=== PATIENT | female | born 1990 | race Caucasian/White ===

== ENCOUNTER 2017-10-14 09:30 | Emergency (ER) | payer OTHER ==
[2017-10-14] MEDS ORDERED: HYDROcod/ACETAM 5/325 MG TABLET PO STA (10:35)
--- NOTE | 2017-10-14 10:38 | ED Physician Documentation ---
PD HPI HEENT - Stated complaint Stated Complaint: BILAT EAR PX/HEAD PX - Chief complaint Chief Complaint: Heent - History obtained from History obtained from: Patient - History of Present Illness Timing - onset: How many days ago (2) Timing - details: Still present Location: Right ear, Left ear Associated symptoms: Headache Similar symptoms before: Has not had sx before - Additional information Additional information: The patient is a 27-year-old female who presents with bilateral ear pain that started 2 days ago and is worse this morning. She reports rupture of her right tympanic membrane is morning. She reports associated headache and nausea. She denies fever, vomiting, cough, or sore throat. She denies history of similar symptoms in the past. She denies any recent air travel, diving, or swimming. Review of Systems Constitutional: denies: Fever Eyes: denies: Irritation Ears: reports: Ear pain (bilaterally), Drainage/discharge Nose: reports: Congestion Throat: denies: Sore throat Cardiac: denies: Chest pain / pressure Respiratory: denies: Dyspnea, Cough GI: reports: Nausea. 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 HEENT: Tonsil/Adenoidectomy - Present Medications Home Medications: Ambulatory Orders Medication Instructions Recorded Confirmed Azithromycin [Zithromax] 250 mg PO DAILY #6 tablet 10/14/17 Ciproflox/Dexameth Otic Drops 10/14/17 [Ciprodex] HYDROcod/ACETAM 5/325 [Vicodin 1 ea PO Q6H PRN #12 tablet 10/14/17 5/325] Ibuprofen 10/14/17 Neomycin/Polymyx/Hc Otic Drops 4 drops OT TID #1 bottle 10/14/17 [Cortisporin Ear Susp] Pseudoephedrine [Sudafed] 10/14/17 - Allergies Allergies/Adverse Reactions: Allergies Allergy/AdvReac Type Severity Reaction Status Date / Time amoxicillin Allergy Unknown Verified 10/14/17 09:41 - Social History Does the pt smoke?: No Smoking Status: Never smoker Does the pt drink ETOH?: Yes Does the pt have substance abuse?: No - Immunizations Immunizations are current?: Yes - POLST Patient has POLST: No PD ED PE NORMAL - Vitals Vital signs reviewed: Yes (initially hypertensive.) - General General: Alert and oriented X 3, Well developed/nourished, Other (Appears distraught, and is crying.) - HEENT HEENT: Atraumatic, EOMI, Pharynx benign, Other (Purulent drainage is noted in the left ear canal, and the tympanic membrane is dull. Right ear canal also has purulent drainage, with a dull tympanic membrane.) - Neck Neck: Supple, no meningeal sign, Other (Mildly enlarged anterior cervical nodes bilaterally.) - Cardiac Cardiac: RRR - Respiratory Respiratory: No respiratory distress, Clear bilaterally - Back Back: No CVA TTP - Derm Derm: No rash - Extremities Extremities: No edema, No calf tenderness / cord - Neuro Neuro: Alert and oriented X 3, No motor deficit, Normal speech Results - Vitals Vitals: Oxygen O2 Source Room air PD MEDICAL DECISION MAKING - ED course Complexity details: re-evaluated patient, considered differential, d/w patient, d/w family ED course: The patient's presentation is most consistent with bilateral otitis media and bilateral otitis externa. Her presentation does not suggest meningitis or peritonsillar abscess. Treatment in the emergency department included administration of Vicodin one tablet orally. She is being discharged with prescriptions for Zithromax, Cortisporin otic suspension, and Vicodin, 12 tablets. I discussed with her and her the expected course of illness, antibiotic treatment and outpatient follow-up, as well as potentially worrisome signs or symptoms that should prompt reevaluation in the emergency department. Departure - Departure Disposition: 01 Home, Self Care Clinical Impression: Bilateral otitis media Qualifiers: Otitis media type: suppurative Chronicity: acute Recurrence: not specified as recurrent Spontaneous tympanic membrane rupture: without spontaneous rupture Qualified Code(s): H66.003 - Acute suppurative otitis media without spontaneous rupture of ear drum, bilateral Bilateral otitis externa Qualifiers: Otitis externa type: unspecified type Chronicity: acute Qualified Code(s): H60.503 - Unspecified acute noninfective otitis externa, bilateral Condition: Stable Instructions: ED Otitis Media Acute Adult, ED Otitis Externa Follow-Up: [facility] [Provider Group] Prescriptions: Azithromycin [Zithromax] 250 mg PO DAILY #6 tablet HYDROcod/ACETAM 5/325 [Vicodin 5/325] 1 ea PO Q6H PRN #12 tablet PRN Reason: Pain Neomycin/Polymyx/Hc Otic Drops [Cortisporin Ear Susp] 4 drops OT TID #1 bottle Comments: Take Zithromax daily as prescribed. Administer Cortisporin suspension into each ear canal as prescribed. You can use ibuprofen, up to 800 mg 3 times daily for its anti-inflammatory effect. You can use Vicodin as prescribed if needed for pain. Follow up with your primary physician within 1-2 weeks. Call to schedule an appointment. Return to the emergency department if you develop increasing headache, fever with shaking chills, persistent vomiting, or otherwise worsening symptoms. Discharge Date/Time: 10/14/17 10:49
[2017-10-14 10:48] VITALS: BP 131/89
== END 2017-10-14 10:49 | disposition home or self-care (01) ==
LOC: ED 09:30
DX: H66.003 Acute suppurative otitis media without spontaneous rupture of ear drum, bilateral (principal); H60.503 Unspecified acute noninfective otitis externa, bilateral
CPT/HCPCS: 99283; A9270

== ENCOUNTER 2020-09-23 08:45 | Outpatient (CLI) | payer OTHER ==
--- NOTE | 2020-09-24 12:53 | Mammography Report ---
BILATERAL DIGITAL DIAGNOSTIC MAMMOGRAM 3D/2D: 09/23/2020 CLINICAL: Baseline exam. Occasional left breast pain. No prior exams were available for comparison. The tissue of both breasts is heterogeneously dense. T his may lower the sensitivity of mammography. No significant masses, calcifications, or other findings are seen in either breast. IMPRESSION: NEGATIVE There is no mammographic evidence of malignancy. This exam was interpreted at Station ID: [id number]. NOTE: For mammograms, a report in lay terms will be sent to the patient. Approximately 15% of breast malignancies will not be visualized mammographically. In the management of a palpable breast mass, a negative mammogram must not discourage biopsy of a clinically suspicious lesion. Electronically Signed By: Jacob Baig M.D. jr/:09/24/2020 11:29:45 ACR BI-RADS Category 1: Negative 3341F PARENCHYMAL PATTERN: (D) - The breast(s) demonstrate(s) heterogeneously dense fibroglandular david wiggins. BI-RADS CATEGORY: (1) - 1 RECOMMENDATION: (ANNUAL) - Recommend routine annual screening mammography. [id number] 1 year screening LATERALITY: (B)
== END 2020-09-23 08:46 | disposition home or self-care (01) ==
LOC: DI 08:45
PROVIDERS: ATTEND Family Medicine
DX: N64.4 Mastodynia (principal)

== ENCOUNTER 2020-11-02 17:55 | Outpatient (CLI) | payer OTHER | END 2020-11-02 17:56 | disposition short-term general hospital (02) | LOC: EMS 17:55 | DX: R00.0 Tachycardia, unspecified (principal); R20.2 Paresthesia of skin | CPT/HCPCS: A0425; A0429 ==